=== PATIENT | female | born 1950 | race Caucasian/White ===

== ENCOUNTER → 2017-09-12 | Outpatient (CLI) | payer MEDICARE, BC ==
[2017-09-12 13:06] LABS: Basophils % (A) 1 %; CH 27.3; Eosinophils # (A) 0.1 k/uL (0-0.7); Eosinophils % (A) 2 %; HCT 40.9 % (34.0-46.0); HDW 2.45; Luc # (Auto) 0.13; Luc % (Auto) 2; Lymphocytes # (A) 1.3 k/uL (1.0-4.8); Lymphocytes % (A) 19 %; MCH 27.2 pg (25.0-35.0); MCHC 31.7 g/dL (31.0-37.0); MCV 85.8 fL (80.0-100.0); Mean Platelet Volume 7.2; Monocytes # (A) 0.5 k/uL (0-1.0); Monocytes % (A) 7 %; Neutrophils # (A) 4.7 k/uL (1.3-7.7); Neutrophils % (A) 70 %; RBC 4.77 m/uL (3.80-5.40); RDW 13.5 % (11.5-15.5); WBC 6.7 k/uL (3.8-10.6)
== END | disposition home or self-care (01) ==
LOC: LABPAT 12:05
PROVIDERS: ATTEND Surgery
DX: Z01.810 Encounter for preprocedural cardiovascular examination (principal); Z01.812 Encounter for preprocedural laboratory examination; K21.0 Gastro-esophageal reflux disease with esophagitis; D64.9 Anemia, unspecified; F17.200 Nicotine dependence, unspecified, uncomplicated
CPT/HCPCS: 36415; 85025; 86850; 86900; 86901; 93005

== ENCOUNTER → 2017-10-26 | Outpatient (CLI) | payer MEDICARE, BC ==
--- NOTE | 2017-10-26 14:52 | MR ---
EXAMINATION TYPE: MR shoulder LT wo con DATE OF EXAM: 10/26/2017 COMPARISON: Outside radiographs dated 10/24/2017. HISTORY: Left shoulder pain x1 year, fell against rafters top of roof, outside films on pacs TECHNIQUE: Multiplanar, multisequence imaging of the left shoulder is performed without contrast. FINDINGS: Rotator Cuff: There is a small intrasubstance tear of the supraspinatus at the myotendinous junction measuring 0.8 x 0.4 cm on sagittal PD fat-sat image 15 and coronal image 8. Diffuse increased signal is seen within the anterior and mid fibers of the supraspinatus compatible with high-grade tendinopathy with frayin g of the anterior and mid insertional fibers at the bursal surface. The infraspinatus and tarries minor muscle bodies and tendons are of normal signal and morphology. No tear. Signal heterogeneity is seen of the insertional fibers of the subscapularis compatible with mi ld tendinopathy. No discrete tear. Acromioclavicular Joint: There is moderate acromio clavicular arthropathy demonstrated as subchondral cysts, capsular hypertrophy and marginal osteophytes. Glenohumeral Joint: As described below subchondral cysts are seen of the humeral head and glenoid. Th ere is concave deformity of the posterior humeral head without bone marrow edema likely sequela of pr ior Hill-Sachs impaction fracture deformity. Labrum: There is a complex tear of the posterior superior glenoid labrum with a 0.7 x 0.6 cm paralabr al cyst. There is also seen with mild displacement of the superior anterior and inferior anterior gle noid labrum. This is superimposed upon global labral degeneration. No inferior glenohumeral ligament thickening is appreciated. Biceps Tendon: The long head of biceps is in normal location within bicipital groove. However, there is a split tear of the intra-articular portion of the biceps tendon identified. Biceps tendon retains its normal insertion on the biceps anchor. Bone marrow signal: Multiple subchondral cysts are seen of the greater tuberosity of the humeral head . Subchondral cysts are seen of the posterior inferior and posterior superior glenoid. Other: Moderate amount of subacromial/subdeltoid and subcoracoid fluid is seen in addition to a small joint effusion. Multiple axillary lymph nodes appear to maintain fatty hilar enlargement up to 8 mm in short axis, within normal limits of size. IMPRESSION: 1. Small 0.8 x 0.4 cm intrasubstance tear at the myotendinous junction of the supraspinatus superimpo sed upon severe tendinopathy of the mid and anterior insertional fibers. Articular surface fraying is also noted. 2. Mild tendinopathy of the subscapularis insertional fibers. 3. Intra-articular split tear of the biceps tendon. 4. Complex tear of the posterior superior glenoid labrum with a 0.7 cm paralabral cyst. There is also tear of the anterior superior and inferior glenoid labrum superimposed upon global labral degenerati on. 5. Moderate amount of fluid within the subacromial/subdeltoid bursa and subcoracoid bursa related to bursitis. 6. Chronic fracture deformity without bone marrow edema of the posterior superior humeral head/L6 def ormity. 7. Moderate acromioclavicular and glenohumeral arthropathy.
== END | disposition home or self-care (01) ==
LOC: RADMRIMAIN 12:36
PROVIDERS: ATTEND Orthopaedic Surgery
DX: S46.012A Strain of muscle(s) and tendon(s) of the rotator cuff of left shoulder, initial encounter (principal); S46.212A Strain of muscle, fascia and tendon of other parts of biceps, left arm, initial encounter; S43.492A Other sprain of left shoulder joint, initial encounter; M12.812 Other specific arthropathies, not elsewhere classified, left shoulder; M75.82 Other shoulder lesions, left shoulder

== ENCOUNTER → 2017-11-09 | Outpatient (CLI) | payer MEDICARE, BC ==
--- NOTE | 2017-11-13 10:00 | MM ---
Reason for exam: screening (asymptomatic). Last mammogram was performed 2 years and 4 months ago. History: Patient is postmenopausal. Excisional biopsy of the left breast. Physical Findings: A clinical breast exam by your physician is recommended on an annual basis and results should be correlated with mammographic findings. MG 3D Screening Mammo W/Cad Bilateral CC and MLO view(s) were taken. Prior study comparison: July 22, 2015, bilateral MG screening mammo w CAD. March 25, 2014, bilateral MG screening mammo w CAD. There are scattered fibroglandular densities. There may be some left medial middle breast CC view skin thickening. Clinical management is suggested. This finding is changed when compared with previous exams. ASSESSMENT: Benign, BI-RAD 2 RECOMMENDATION: Routine screening mammogram of both breasts in 1 year. Manage on a clinical basis with regard to skin thickening medial left breast.
== END | disposition home or self-care (01) ==
LOC: RADMAMWWP 12:05
PROVIDERS: ATTEND Family Medicine
DX: Z12.31 Encounter for screening mammogram for malignant neoplasm of breast (principal)
CPT/HCPCS: 77063; 77067

== ENCOUNTER → 2017-12-14 | Outpatient (CLI) | payer MEDICARE, BC ==
[2017-12-14 10:22] LABS: Basophils % (A) 1 %; Eosinophils # (A) 0.1 k/uL (0-0.7); Eosinophils % (A) 2 %; HCT 37.1 % (34.0-46.0); HGB 11.9 gm/dL (11.4-16.0); Lymphocytes # (A) 1.7 k/uL (1.0-4.8); Lymphocytes % (A) 30 %; MCH 26.7 pg (25.0-35.0); MCV 83.6 fL (80.0-100.0); Mean Platelet Volume 7.2; Monocytes # (A) 0.4 k/uL (0-1.0); Monocytes % (A) 7 %; Neutrophils # (A) 3.2 k/uL (1.3-7.7); Neutrophils % (A) 56 %; Platelet Count 268 k/uL (150-450); RBC 4.45 m/uL (3.80-5.40); RDW 13.3 % (11.5-15.5); WBC 5.7 k/uL (3.8-10.6)
[2017-12-14 10:46] LABS: Potassium 4.5 mmol/L (3.5-5.1)
== END | disposition home or self-care (01) ==
LOC: LABPAT 09:37
PROVIDERS: ATTEND Orthopaedic Surgery
DX: Z01.812 Encounter for preprocedural laboratory examination (principal); M75.42 Impingement syndrome of left shoulder
CPT/HCPCS: 36415; 80051; 85025

== ENCOUNTER 2017-12-20 10:54 | Day surgery (SDC) | payer MEDICARE, BC ==
[2017-12-19 09:03] VITALS: BMI 32.3
--- NOTE | 2017-12-19 16:43 | HP ---
HISTORY AND PHYSICAL REASON FOR ADMISSION: Surgery 12/20/17 Valerie Rouse is a 67-year-old patient seen with progressive left shoulder pain. Treatment options were discussed. She elected to proceed with left shoulder arthroscopy. Consent regarding the procedure was obtained. PAST MEDICAL HISTORY: Gastroesophageal reflux disease, hypothyroidism. SURGICAL HISTORY: Hysterectomy. MEDICATIONS: Klonopin, levothyroxine, Paxil, Prevacid. ALLERGIES: None reported. SOCIAL HISTORY: Patient denies current tobacco use. PHYSICAL EXAMINATION: Evaluation of the left shoulder flexion is 90 degrees, abduction is 80 degrees, external rotation is 20 degrees with pain and weakness. Tenderness along the anterolateral acromion rotator cuff insertion site. Impingement sign is positive at 60 degrees. Drop-arm sign is positive. Distal neurovascular exam is intact. RADIOGRAPHS: Left shoulder radiographs revealed a type 2 anterior acromion acromioclavicular joint osteoarthritis and cystic changes of the tuberosity. Left shoulder MRI revealed rotator cuff tear, labral tear, partial biceps tendon tear as well as acromioclavicular joint osteoarthritis. IMPRESSION: Left shoulder impingement with rotator cuff tear, acromioclavicular joint osteoarthritis, labral tear. PLAN: Left shoulder arthroscopy with subacromial decompression probable arthroscopic rotator cuff repair, possible biceps tenotomy and debridement. Surgery is 12/20/17. MMODL / IJN: [id number] /
[~2017-12-20 10:54] MED LIST: DEXAMETHASONE SOD PHOSPHATE 10 MG/ML 1 ML VIAL IV ONE; LACTATED RINGERS 1,000 ML IV SCH; LIDOCAINE 1% 20 ML VIAL (10MG/ML) FOR IV START INTRADERMA PRN; MIDAZOLAM 2 MG/2 ML VIAL IV PRN; MORPHINE SULFATE 2 MG/ML SYRINGE IV PRN; ONDANSETRON 4 MG/2 ML VIAL IVP ONE; SCOPOLAMINE 1.5MG/72HR PATCH TRANSDERM ONE; ceFAZolin IN SWFI 2 GM/20 ML SYRINGE IVP ONE
[2017-12-20] MEDS ORDERED: MIDAZOLAM 2 MG/2 ML VIAL IVP ONE (11:46)
[2017-12-20] MEDS ORDERED: fentaNYL (PF) 50 MCG/ML 2 ML AMP IVP ONE (11:46)
--- NOTE | 2017-12-20 11:57 | P.ONQ ---
Anesthesiology Proc Note - PNB - Peripheral Nerve Block Performed Left Interscalene Single Procedure Start Time: 11:40 Procedure Stop Time: 11:50 Indication: Acute Post-Operative Pain Specifically requested for management of pain by DrMagui: Rodney Shelby Sedation Type: Sedate with meaningful contact maintained Preparation: Sterile Prep Position: Supine Catheter: None Needle Types: Other (see comment) (PAJUNK) Needle Size: 50mm (2") Needle Gauge: 20 Technique: Ultrasound Injectate: 0.5% Ropivacaine (see comment for volume) (ROPivacaine 0.5 % 15 ml + lidocaine 1 % with epi 1/200 k 15 ml) Blood Aspirated: No Pain Paresthesia on Injection Noted: No Resistance on Injection: Normal Events: Uneventful and Well Tolerated
[2017-12-20] MEDS ORDERED: fentaNYL (PF) 50 MCG/ML 2 ML AMP ONE (12:16)
[2017-12-20] MEDS ORDERED: MIDAZOLAM 2 MG/2 ML VIAL ONE (12:16)
[2017-12-20] MEDS ORDERED: LIDOCAINE 2%-EPI 1:100,000 20 ML VIAL ONE (12:16)
[2017-12-20] MEDS ORDERED: PHENYLEPHRINE-0.9% NACL SYG 1 MG/10 ML SYRINGE ONE (12:16)
[2017-12-20] MEDS ORDERED: PROPOFOL 10 MG/ML 20 ML VIAL IV ONE (12:16)
[2017-12-20] MEDS ORDERED: LIDOCAINE 1% INJ 10MG/ML (20 ML MDV) ONE (12:16)
[2017-12-20] MEDS ORDERED: ROPIVACAINE 5 MG/ML 30 ML VIAL ONE (12:16)
[2017-12-20] MEDS ORDERED: SUCCINYLCHOLINE CHLORIDE 100 MG/5 ML SYR IV ONE (12:16)
[2017-12-20] MEDS ORDERED: LACTATED RINGERS 1,000 ML IV ONE (13:00)
--- NOTE | 2017-12-20 13:45 | P.OP ---
Date of Procedure: 12/20/17 Preoperative Diagnosis: Left shoulder impingement Postoperative Diagnosis: 1. Left shoulder rotator cuff tear 2. Left shoulder impingement 3. Left shoulder partial long head biceps tendon tear 4. Left shoulder superficial labral tear 5. 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 Left shoulder arthroscopic rotator cuff repair 2. Left shoulder arthroscopic subacromial decompression 3. Left shoulder arthroscopic biceps tenotomy 4. Left shoulder arthroscopic debridement labral tear 5. Left shoulder arthroscopic chondroplasty humeral head Implants: 1-valeris 4.5 peek anchor Anesthesia: GETA, regional (Interscalene block) Surgeon: Rodney Shelby Batch Plant Operator #1: Ammon Mora Estimated Blood Loss (ml): 11 Pathology: none sent Condition: stable Disposition: PACU Indications for Procedure: 67-year-old patient seen with progressive left shoulder pain. After treatment options were discussed, she elected to proceed with arthroscopy. Operative Findings: see description of procedure Description of Procedure: Patient underwent a shoulder block by department of anesthesia. The patient was then taken to the operative suite. The patient underwent a general anesthetic by the department of anesthesia. The patient was placed into a lateral position and secured. There was appropriate padding of the bony prominence. Left shoulder was then prepped and draped in normal sterile orthopedic fashion. We placed the extremity in 10 pounds of longitudinal traction. A posterior incision was now made for a posterior working portal site. The trocar and cannula were inserted into the glenohumeral joint. Arthroscopy was initiated. Spinal needle was now inserted anteriorly, to ascertain the anterior working portal site. An incision was now made in that area, a trocar was inserted followed by a probe. There were grade 3 and 4 chondromalacia changes of the humeral head with osteochondral tears. There was superficial tearing along the superior labrum. There was partial tearing and hyperemia long head biceps tendon. There were grade 3, changes of the glenoid with no osteochondral tears. There were no loose bodies. I performed an arthroscopic biceps tenotomy. I debrided the labral tears down to stable tissue. I performed a chondroplasty of the humeral head down to stable osteochondral tissue. The residual labrum was stable. The residual osteochondral surface of the humeral head was stable. We did note grade 4 chondromalacia changes centrally. At this point instruments removed from the glenohumeral joint. Utilizing the posterior working portal site, the trocar and cannula were inserted into the subacromial space. Arthroscopy initiated. I made an incision 2 fingerbreadths lateral to the acromion. I introduced my trocar followed by my [employer] ablator. I now began ablating thick subacromial bursal tissue, which exposed the undersurface of the anterior acromion. This was diminished subacromial space. There was a very prominent anterior acromion. A motorized bur was introduced and a subacromial decompression was performed. I also excised some osteophytes off the inferior aspect of the distal clavicle. The AC joint was visualized and noted to be moderately arthritic, I did not think enough toward a Cristy procedure. I now turned my attention to the distal supraspinatus area. I know some partial tearing on distal supraspinatus. I debrided that down to stable tissue. There was an area full-thickness perforation or tear. The margins were debrided down to stable tissue. Our tear was about 1 cm inframammary mobile over the footprint. I abraded the footprint with a motorized bur. I passed one everted mattress suture and then repaired the tendon utilizing one 4.5 anchor compressing the tendon along her braided footprint very nicely. Residual suture limbs were clipped. We had a good stable rotator cuff tendon repair. I injected 1 mL UCT intra-articular. Instruments now removed from the portal sites. All portal sites were approximated with nylon suture. Sterile dressings were applied followed by a shoulder immobilizer. Marshal CM assisted with the procedure. The patient was awakened, transferred to a bed, and taken to recovery in stable condition.
[2017-12-20 13:49] VITALS: TEMP 97
[2017-12-20 14:50] VITALS: RESP 18
[2017-12-20 15:25] VITALS: BP 118/73; PULSE 74
== END 2017-12-20 15:59 | disposition home or self-care (01) ==
LOC: OR 10:54
PROVIDERS: ATTEND Orthopaedic Surgery
DX: M75.102 Unspecified rotator cuff tear or rupture of left shoulder, not specified as traumatic (principal); M75.42 Impingement syndrome of left shoulder; S46.112A Strain of muscle, fascia and tendon of long head of biceps, left arm, initial encounter; S43.492A Other sprain of left shoulder joint, initial encounter; M94.212 Chondromalacia, left shoulder; M19.012 Primary osteoarthritis, left shoulder; K21.9 Gastro-esophageal reflux disease without esophagitis; M79.7 Fibromyalgia; K51.90 Ulcerative colitis, unspecified, without complications; E07.9 Disorder of thyroid, unspecified; G89.29 Other chronic pain; F41.9 Anxiety disorder, unspecified; F32.9 Major depressive disorder, single episode, unspecified; F98.8 Other specified behavioral and emotional disorders with onset usually occurring in childhood and adolescence; Z79.891 Long term (current) use of opiate analgesic; Z79.1 Long term (current) use of non-steroidal anti-inflammatories (NSAID); Z79.899 Other long term (current) drug therapy
CPT/HCPCS: 64415; 29827; 29826; 29822; C1713; C1765; J2250; J1100; J2405; J2001; J3010; J2795; J2370; J0330; J2704; J0690

== ENCOUNTER 2019-01-22 07:38 | Day surgery (SDC) | payer MEDICARE, BC ==
[2019-01-21 08:52] VITALS: BMI 29.7
[~2019-01-22 07:38] MED LIST changes: -DEXAMETHASONE SOD PHOSPHATE 10 MG/ML 1 ML VIAL IV ONE; -MIDAZOLAM 2 MG/2 ML VIAL IV PRN; -MORPHINE SULFATE 2 MG/ML SYRINGE IV PRN; -ONDANSETRON 4 MG/2 ML VIAL IVP ONE; -SCOPOLAMINE 1.5MG/72HR PATCH TRANSDERM ONE; -ceFAZolin IN SWFI 2 GM/20 ML SYRINGE IVP ONE
[2019-01-22 07:57] VITALS: TEMP 97.8
[2019-01-22] MEDS ORDERED: PROPOFOL 10 MG/ML 20 ML VIAL IV ONE (08:10)
--- NOTE | 2019-01-22 08:19 | P.GSHP ---
History of Present Illness H&P Date: 01/22/19 Chief Complaint: Dysphagia This a 68-year-old female with complaints of dysphagia. Patient resents today for EGD. She's had previous balloon dilatation of her esophagus in the past. Past Medical History Past Medical History: Fibromyalgia, GERD/Reflux, Hyperlipidemia, Osteoarthritis (OA), Thyroid Disorder Additional Past Medical History / Comment(s): DIFFICULTY SWALLOWING, ulcerative colitis, IBS, diff swallowing and pain, hx ulcer, hx hiatal hernia, degenerative disks in neck and back, History of Any Multi-Drug Resistant Organisms: None Reported Past Surgical History: Breast Surgery, Hernia Repair, Hysterectomy, Orthopedic Surgery Additional Past Surgical History / Comment(s): breast biopsy, laparoscopy, colonoscopies, EGD with dilation, [place] fundoplasty x 2(last 09/14/17) Past Anesthesia/Blood Transfusion Reactions: No Reported Reaction Smoking Status: Former smoker - Past Family History Mother Family Medical History: Cancer Additional Family Medical History / Comment(s): COLON CANCER Father Additional Family Medical History / Comment(s): ANEURYSM Medications and Allergies Home Medications Medication Instructions Recorded Confirmed Type Mesalamine [Asacol Hd] 800 mg PO TID PRN 03/20/14 01/22/19 History Mesalamine [Rowasa] 4 gm RECTAL HS PRN 03/20/14 01/22/19 History PARoxetine HCL [Paxil] 20 mg PO DAILY 03/20/14 01/22/19 History Levothyroxine Sodium [Synthroid] 75 mcg PO DAILY 03/09/16 01/22/19 History Multivit with Calcium,Iron,Min 1 each PO DAILY 08/17/17 01/22/19 History [Women's Multivitamin] Naproxen Sodium [Aleve] 220 mg PO BID PRN 08/17/17 01/22/19 History Omeprazole 40 mg PO DAILY #60 capsule.dr 08/20/17 01/22/19 Rx Ezetimibe [Zetia] 10 mg PO DAILY 01/21/19 01/22/19 History Melatonin 5 mg PO DAILY 01/21/19 01/22/19 History Allergies Allergy/AdvReac Type Severity Reaction Status Date / Time [place] fiberglass insulation Allergy Rash/Hives Uncoded 01/22/19 07:48 Surgical - Exam Vital Signs Temp Pulse Resp BP Pulse Ox 97.8 F 82 17 147/81 96 01/22/19 07:54 01/22/19 07:54 01/22/19 07:54 01/22/19 07:54 01/22/19 07:54 - General well developed, well nourished, no distress - Eyes PERRL - ENT normal pinna - Neck no masses - Respiratory normal expansion - Cardiovascular Rhythm: regular - Abdomen Abdomen: soft, non tender Assessment and Plan Assessment: Dysphagia. We'll perform EGD and possible balloon dilatation.
--- NOTE | 2019-01-22 08:31 | P.OP ---
Date of Procedure: 01/22/19 Preoperative Diagnosis: GERD Dysphagia Postoperative Diagnosis: Esophagitis Esophageal stricture Hiatal hernia Procedure(s) Performed: EGD Anesthesia: MAC Surgeon: Jeff Kiran Pathology: other (Esophagitis) Condition: stable Disposition: PACU Description of Procedure: Patient's placed on the endoscopy table in the lateral position. She received IV sedation. The gastroscope placed oropharynx passed in the esophagus and stomach. Scope then placed through the pylorus. First and second portion duodenum appeared normal. Scope was then brought back the antrum this. All. Scope was unretroflexed there was a small recurrent hiatal hernia. The GE junction was at 38 cm. Just above the GE junction there appeared to be evidence of a stricture. There is evidence of esophagitis with linear erosions and esophagus. A biopsy of the esophagus performed. The 20 mm balloon was placed across the GE junction and the esophagus was dilated. The subcu position for 2 minutes. The balloon was insufflated. There is no incision any injury to the esophagus. Scope was then withdrawn. Patient top she will was sent to recovery room stable condition.
[2019-01-22 08:45] VITALS: RESP 16
[2019-01-22 09:04] VITALS: BP 127/85; PULSE 87
== END 2019-01-22 09:22 | disposition home or self-care (01) ==
LOC: ORWHC2ENDO 07:38
PROVIDERS: ATTEND Surgery
DX: K21.0 Gastro-esophageal reflux disease with esophagitis (principal); K22.2 Esophageal obstruction; K44.9 Diaphragmatic hernia without obstruction or gangrene; K22.10 Ulcer of esophagus without bleeding; M79.7 Fibromyalgia; E78.5 Hyperlipidemia, unspecified; M19.90 Unspecified osteoarthritis, unspecified site; E07.9 Disorder of thyroid, unspecified; Z87.891 Personal history of nicotine dependence; Z80.0 Family history of malignant neoplasm of digestive organs; Z79.890 Hormone replacement therapy; Z79.899 Other long term (current) drug therapy
CPT/HCPCS: 88305; 43239; 43249; J2704; C1726

== ENCOUNTER 2019-02-26 09:34 | Day surgery (SDC) | payer MEDICARE, BC ==
[2019-02-25 09:55] VITALS: BMI 32.3
[2019-02-26 10:04] VITALS: TEMP 97.5
[2019-02-26] MEDS ORDERED: PROPOFOL 10 MG/ML 20 ML VIAL IV ONE (10:21)
[2019-02-26] MEDS ORDERED: LIDOCAINE 1% INJ 10MG/ML (20 ML MDV) ONE (10:21)
--- NOTE | 2019-02-26 10:26 | P.GSHP ---
History of Present Illness H&P Date: 02/26/19 Chief Complaint: Family history colonic Cancer, screening colonoscopy This is a 68-year-old female been safe for screening colonoscopy. Patient has a strong family history of colon cancer. Past Medical History Past Medical History: Fibromyalgia, GERD/Reflux, Hyperlipidemia, Osteoarthritis (OA), Thyroid Disorder Additional Past Medical History / Comment(s): DIFFICULTY SWALLOWING, ulcerative colitis, IBS, diff swallowing and pain, hx ulcer, hx hiatal hernia, degenerative disks in neck and back, History of Any Multi-Drug Resistant Organisms: None Reported Past Surgical History: Breast Surgery, Hernia Repair, Hysterectomy, Orthopedic Surgery Additional Past Surgical History / Comment(s): breast biopsy, laparoscopy, colonoscopies, EGD with dilation, [place] fundoplasty x 2(last 09/14/17) Past Anesthesia/Blood Transfusion Reactions: No Reported Reaction Smoking Status: Former smoker - Past Family History Mother Family Medical History: Cancer Additional Family Medical History / Comment(s): COLON CANCER Father Additional Family Medical History / Comment(s): ANEURYSM Medications and Allergies Home Medications Medication Instructions Recorded Confirmed Type Mesalamine [Asacol Hd] 800 mg PO TID PRN 03/20/14 02/25/19 History Mesalamine [Rowasa] 4 gm RECTAL HS PRN 03/20/14 02/25/19 History PARoxetine HCL [Paxil] 20 mg PO DAILY 03/20/14 02/25/19 History Multivit with Calcium,Iron,Min 1 each PO DAILY 08/17/17 02/25/19 History [Women's Multivitamin] Naproxen Sodium [Aleve] 220 mg PO BID PRN 08/17/17 02/25/19 History Melatonin 5 mg PO HS PRN 01/21/19 02/25/19 History Omeprazole 40 mg PO DAILY #60 capsule. 01/22/19 02/25/19 Rx Sucralfate [Carafate] 1 gm PO BID #60 tab 01/22/19 02/25/19 Rx Ezetimibe [Zetia] 10 mg PO DAILY 02/25/19 02/25/19 History traMADol HCL [Ultram] 50 mg PO Q4HR PRN 02/25/19 02/25/19 History Allergies Allergy/AdvReac Type Severity Reaction Status Date / Time [place] fiberglass insulation Allergy Rash/Hives Uncoded 02/26/19 09:48 Surgical - Exam Vital Signs Temp Pulse Resp BP Pulse Ox 97.5 F L 105 H 16 138/73 98 02/26/19 10:00 02/26/19 10:00 02/26/19 10:00 02/26/19 10:00 02/26/19 10:00 - General well developed, well nourished, no distress - Eyes PERRL - ENT normal pinna - Neck no masses - Respiratory normal expansion - Cardiovascular Rhythm: regular - Abdomen Abdomen: soft, non tender Assessment and Plan Assessment: Family history: Cancer, We'll perform screening colonoscopy
--- NOTE | 2019-02-26 10:38 | P.OP ---
Date of Procedure: 02/26/19 Preoperative Diagnosis: Family history of colonic Cancer Screening colonoscopy Postoperative Diagnosis: Proctitis Procedure(s) Performed: Colonoscopy Anesthesia: MAC Surgeon: Jeff Kiran Pathology: other (Rectum) Condition: stable Disposition: PACU Description of Procedure: Patient's placed on the endoscopy table in the lateral position. She received IV sedation. Digital rectal exam was performed which revealed no abnormalities. The flexible colonoscope was then placed patient anus and passed throughout the entire colon. The ileocecal valve was visually is. The cecum, ascending and transverse colon appeared normal. The descending and sigmoid colon appeared normal. Scope was then brought back the rectum and appeared to be some minor inflammation. This area was biopsied. The scope was withdrawn for patient.
[2019-02-26 10:45] VITALS: RESP 18
[2019-02-26 11:07] VITALS: BP 159/72; PULSE 91
== END 2019-02-26 11:14 | disposition home or self-care (01) ==
LOC: ORWHC2ENDO 09:34
PROVIDERS: ATTEND Surgery
DX: Z12.11 Encounter for screening for malignant neoplasm of colon (principal); K62.89 Other specified diseases of anus and rectum; E78.5 Hyperlipidemia, unspecified; K51.90 Ulcerative colitis, unspecified, without complications; K21.9 Gastro-esophageal reflux disease without esophagitis; K44.9 Diaphragmatic hernia without obstruction or gangrene; M19.90 Unspecified osteoarthritis, unspecified site; M79.7 Fibromyalgia; Z87.891 Personal history of nicotine dependence; Z80.0 Family history of malignant neoplasm of digestive organs; Z79.899 Other long term (current) drug therapy; Z91.09 Other allergy status, other than to drugs and biological substances
CPT/HCPCS: 88305; 45380; J2001; J2704